=== PATIENT | male | born 1975 ===

== ENCOUNTER 2017-05-09 13:08 | Emergency (ER) | payer OTHER ==
[2017-05-09 13:46] LABS: #Lymphocytes 1.7 thou/uL (1.20-3.40); #Monocytes 0.6 thou/uL (0.11-0.59); #Neutrophils 3.8 thou/uL (1.40-6.50); %Basophils 0.4 % (0.0-1.0); %Eosinophils 0.7 % (0.0-10.0); %Lymphocytes 27.1 % (21.0-51.0); %Monocytes 9.5 % (0.0-10.0); %Neutrophils 62.3 % (42.0-75.0); Hemoglobin 14.7 g/dL (14.0-18.0); Mean Corpuscular Hemoglobin 28.9 pg (27.0-31.0); Mean Corpuscular Volume 87.5 fl (80.0-94.0); Mean Platelet Volume 6.8 fL (7.4-10.4); Platelet Count 325 thou/uL (130-400); RBC Distribution Width 12.3 % (11.5-14.5); Red Blood Cell (RBC) Count 5.09 mill/uL (4.70-6.10); White Blood Cell (WBC) Count 6.1 thou/uL (4.8-10.8)
[2017-05-09 14:05] LABS: ALT (SGPT) 17 U/L (8-55); AST (SGOT) 22 U/L (5-34); Albumin 4.1 g/dL (3.5-5.0); Alkaline Phosphatase 95 U/L (40-150); Anion Gap 11 mmol/L (10-20); BUN (Urea Nitrogen) 15 mg/dL (8.9-20.6); Bilirubin, Total 0.5 mg/dL (0.2-1.2); CK (CPK) 301 U/L (30-200); Calc. Creatinine Clearance 0 mL/min (70-130); Calcium 9.5 mg/dL (7.8-10.44); Carbon Dioxide 26 mmol/L (22-29); Chloride 105 mmol/L (98-107); Estimated GFR-MDRD 58; Globulin 3.7 g/dL (2.4-3.5); Glucose 87 mg/dL (70-105); Potassium 4.8 mmol/L (3.5-5.1); Protein, Total 7.8 g/dL (6.0-8.3); Sodium 137 mmol/L (136-145)
[2017-05-09 14:09] LABS: CKMB 1.6 ng/mL (0-6.6); Troponin I 0.021 ng/mL (< 0.028)
--- NOTE | 2017-05-09 14:15 | RAD ---
RADIOGRAPH CHEST 2 VIEWS: HISTORY: A 41-year-old male with chest pain and tightness. FINDINGS: The lungs are clear. The cardiomediastinal silhouette and hilar shadows are normal. There is no ple ural effusion. The osseous structures appear normal. There is no pneumothorax. IMPRESSION: Normal. bartolo [] POS: [facility]
== END 2017-05-09 17:09 | disposition home or self-care (01) ==
LOC: ERS 13:08
DX: R07.9 Chest pain, unspecified (principal)
CPT/HCPCS: 36415; 71046; 80053; 82550; 82553; 84484; 85025; 93005